=== PATIENT | male | born 1975 | race Caucasian/White ===

== ENCOUNTER 2021-08-24 15:08 | Outpatient (CLI) | payer OTHER, SELFPAY ==
--- NOTE | ~2021-08-24 | US_ITS ---
EXAMINATION: US scrotum doppler DATE: 08/24/2021 16:07 INDICATION: Lump in scrotum. TECHNIQUE: Grayscale and Doppler ultrasound images of the testes were obtained. COMPARISON: None. FINDINGS: The right testis measures 4.2 x 2.4 cm. The left testis measures 4.6 x 1.9 x 2.5 cm. There is normal vascular flow to both testes. The right epididymis is normal with normal vascular flow. The left epididymis is normal with normal vascular flow. There are small bilateral hydroceles. There is a right inguinal hernia containing bowel. IMPRESSION: 1. Right inguinal hernia containing bowel. 2. Small bilateral hydroceles. Reviewed, dictated and finalized at location A.
== END 2021-08-24 15:09 | disposition home or self-care (01) ==
PROVIDERS: PCP Student in an Organized Health Care Education/Training Program; Visit Provider Student in an Organized Health Care Education/Training Program
DX: N43.3 Hydrocele, unspecified (principal); K40.90 Unilateral inguinal hernia, without obstruction or gangrene, not specified as recurrent
CPT/HCPCS: 76870; 93976